=== PATIENT | male | born 1995 | race Caucasian/White ===

== ENCOUNTER 2017-12-23 17:10 | Emergency (ER) | payer SELFPAY ==
[~2017-12-23] VITALS: Ht 182.9 cm; Wt 95.3 kg
[~2017-12-23 17:10] MED LIST: CLIN300C3 PO; METH4TAB PO; NAPR-243 PO; PRCD5U PO; SULF1TAB35 PO; SULF1TAB38 PO
--- OUTSIDE RECORDS SUMMARY | 2017-12-23 17:15 | XMS REPORT | Continuity of Care Document ---
Author Author [facility] Organization [facility] Address Unknown Phone Unavailable Allergies Active Description Code Type Severity Reaction Onset Reported/Identified Relationship to Patient Clinical Status Yes No Known Drug Allergies [id number] Drug Allergy Mild N/A 12/12/2008 Medications There is no data. Problems Date Dx Coded Attending Type Code Diagnosis Diagnosed By 07/16/2011 Ot 845.00 SPRAIN OF ANKLE NOS 07/16/2011 Ot 959.7 LOWER LEG INJURY NOS 07/16/2011 Ot E000.8 OTHER EXTERNAL CAUSE STATUS 07/16/2011 Ot E849.0 ACCIDENT IN HOME 07/16/2011 Ot E885.9 FALL FROM SLIPPING, TRIPPING, OR STUMBLI 07/16/2011 Ot E927.0 OVEREXERTION FROM SUDDEN STRENUOUS MOVEM 03/15/2012 Ot 682.3 CELLULITIS OF ARM 03/24/2013 KAJAL HOLDER APRN Ot 845.00 SPRAIN OF ANKLE NOS 03/24/2013 KAJAL HOLDER APRN Ot 959.7 LOWER LEG INJURY NOS 03/24/2013 KAJAL HOLDER APRN Ot E000.8 OTHER EXTERNAL CAUSE STATUS 03/24/2013 KAJAL HOLDER APRN Ot E004.9 OTHER ACTIVITY INVG CLIMBING, RAPPELLING 03/24/2013 KAJAL HOLDER APRN Ot E849.0 ACCIDENT IN HOME 03/24/2013 KAJAL HOLDER APRN Ot E884.9 FALL-1 LEVEL TO OT NEC Procedures There is no data. Results There is no data. Encounters ACCT No. Visit Date/Time Discharge Status Pt. Type Provider Facility Loc./Unit Complaint [id number] 03/24/2013 19:15:00 03/24/2013 20:10:00 DIS Emergency KAJAL HOLDER APRN [facility] ER L ANKLE PAIN [id number] 03/15/2012 13:38:00 Document Registration [id number] 07/16/2011 19:27:00 Document Registration
--- OUTSIDE RECORDS SUMMARY | 2017-12-23 17:15 | XMS REPORT ---
Author Author MARILYN STARKEY Organization [facility] Address [address] [place] [address] Care Team Providers Care Exchange Administrator Name Role Phone MARILYN STARKEY Unavailable PROBLEMS Unknown Problems ALLERGIES No Information ENCOUNTERS Encounter Location Date Diagnosis [facility] [id number] [address] Sep, [facility] [id number] [place] [phone] Dec, [facility] [id number] [address] Jan, [facility] [id number] [place] [phone] Jan, [facility] [id number] [address] Dec, [facility] [id number] [place] [phone] May, [facility] [id number] [address] Feb, IMMUNIZATIONS No Known Immunizations SOCIAL HISTORY Never Assessed REASON FOR VISIT Requests return call PLAN OF CARE VITAL SIGNS MEDICATIONS Unknown Medications RESULTS No Results PROCEDURES No Known procedures INSTRUCTIONS MEDICATIONS ADMINISTERED No Known Medications
--- NOTE | 2017-12-23 17:24 | ED Upper Extremity ---
General Chief Complaint: Upper Extremity Stated Complaint: R HAND INJ Source: patient Exam Limitations: no limitations History of Present Illness Date Seen by Provider: Dec 23, 2017 Time Seen by Provider: 17:20 Initial Comments Patient is a 22-year-old male who presents to the emergency room with complaints of right hand pain. He reports that 5 days ago he smashed his hand between the ground and an entertainment center while moving into his new apartment. He reports that the pain has not improved and he started developing bruising on his right palmar surface of his hand. Onset: last week Pain/Injury Location: right hand Method of Injury: other (smashed) Modifying Factors: Improves With Immobilization; Worse With Movement Allergies and Home Medications Allergies Coded Allergies: No Known Drug Allergies (Unverified Allergy, Mild, 12/12/08) Home Medications No Active Prescriptions or Reported Meds Patient Home Medication List Home Medication List Reviewed: Yes Review of Systems Constitutional: see HPI; No chills, No fever Musculoskeletal: see HPI, joint pain (right hand pain and ecchymosis) All Other Systems Reviewed Negative Unless Noted: Yes Past Ecgsodz-Cxszux-Dwslbi Hx Past Med/Social Hx: Reviewed Nursing Past Med/Soc Hx Patient Social History Recent Foreign Travel: No Contact w/Someone Who Travel: No Family Medical History Reviewed Nursing Family Hx Physical Exam Vital Signs Vital Signs - First Documented 12/23/17 17:15 Temp 97.0 Pulse 62 Resp 18 B/P (MAP) 153/92 (112) Pulse Ox 99 Capillary Refill : Height, Weight, BMI Height: '" Weight: 201lbs. oz. 91.902179ti; BMI Method:Stated General Appearance: WD/WN, no apparent distress Cardiovascular: regular rate, rhythm, no edema, no gallop, no JVD, no murmur Respiratory: chest non-tender, lungs clear, normal breath sounds, no respiratory distress, no accessory muscle use Hand: normal ROM, Right, ecchymosis (and ecchymosis to the palmar surface at the base of the fourth and fifth fingers. No abrasions noted.), soft tissue tenderness, stiffness, swelling Neurologic/Tendon: normal sensation, normal motor functions, other (normal capillary refill) Neurologic/Psychiatric: alert, normal mood/affect, oriented x 3 Skin: normal color, warm/dry Procedures/Interventions Splinting and Joint Reduction : Pre-Proc Neuro Vasc Exam: normal Post-Proc Neuro Vasc Exam: normal, unchanged from pre-exam Hand-Made Type: fiberglass Splint Application: Short Arm (ulnar gutter) Progress/Results/Core Measures Results/Orders My Orders Orders - CAROLA FOX Hand, Right, 3 Views (12/23/17 17:19) Vital Signs/I&O 12/23/17 12/23/17 17:15 18:30 Temp 97.0 97.0 Pulse 62 62 Resp 18 18 B/P (MAP) 153/92 (112) 153/92 (112) Pulse Ox 99 99 Progress Progress Note : Time: 18:20 Progress Note I have seen and evaluated the patient. I have informed him of imaging studies. I have placed the patient in an ulnar gutter splint. I have instructed close follow-up with an orthopedic surgeon of his choosing. He agrees with plan of care, plans for discharge, return precautions were given. Departure Impression Primary Impression: Boxer's metacarpal fracture, neck, closed Qualified Codes: S62.339A - Displaced fracture of neck of unspecified metacarpal bone, initial encounter for closed fracture Disposition: HOME, SELF-CARE Condition: Stable/Unchanged Departure-Patient Inst. Decision time for Depature: 18:20 Referrals: [facility] [place] (PCP/Family) Primary Care Physician TATIANA SNOWDEN MD,RYLEY Shrestha MD Patient Instructions: Boxer's Fracture (DC) Add. Discharge Instructions: Wear the splint at all times. Take medications as directed. Follow-up with an orthopedic surgeon of your choosing within 1 week for further evaluation. Call first thing tomorrow morning for appointment time. I have provided the number for Dr. Mckeon and [facility]. He may use ice and elevation as needed. Follow up with [facility] within 1 week for recheck. All discharge instructions reviewed with patient and/or family. Voiced understanding. Scripts No Active Prescriptions or Reported Meds CAROLA FOX Dec 23, 2017 17:24
--- NOTE | 2017-12-23 17:37 | Diagnostic Imaging Report ---
INDICATION: Injury to the right hand with pain in the fifth digit and metacarpal region. TIME OF EXAM: 5:48 p.m. FINDINGS: Three views of the right hand were obtained. There is an acute fracture of the distal fifth metacarpal. There is volar angulation of the distal fracture fragment. Remaining metacarpals are intact. Phalanges are intact. Carpus is unremarkable. IMPRESSION: Angulated distal fifth metacarpal fracture, as described. Dictated by: Dictated on workstation # [id number]
[2017-12-23] MEDS ORDERED: ACHD5005 PO (18:22)
[2017-12-23 18:30] VITALS: BP 153/92
== END 2017-12-23 18:30 | disposition home or self-care (01) ==
LOC: EDUNIT# 17:10 → ER 17:11
DX: S62.336A Displaced fracture of neck of fifth metacarpal bone, right hand, initial encounter for closed fracture (principal); W22.09XA Striking against other stationary object, initial encounter
CPT/HCPCS: 29125; 73130

== ENCOUNTER 2020-01-01 22:28 | Observation (INO) | payer SELFPAY ==
[~2020-01-01] VITALS: Ht 183 cm; Wt 116.9 kg
[~2020-01-01 22:28] MED LIST changes: +ACHD5005 PO
[2020-01-01 22:52] VITALS: BP 115/76
[2020-01-01] MEDS ORDERED: LACTATED RINGERS 1,000 ML IV ONE (22:53)
[2020-01-01] MEDS ORDERED: PROPOFOL DRIP (ICU) 100 ML IV SCH (23:00)
[2020-01-01 23:01] LABS: BASOPHILS % (AUTO) 0 % (0-10); EOSINOPHILS # (AUTO) 0.2 10^3/uL (0.0-0.3); EOSINOPHILS % (AUTO) 2 % (0-10); HEMATOCRIT 42 % (40-54); HEMOGLOBIN 14.1 G/DL (13.3-17.7); LYMPHOCYTES # (AUTO) 4.5 X 10^3 (1.0-4.0); LYMPHOCYTES % (AUTO) 40 % (12-44); MEAN CORPUSCULAR HEMOGLOBIN 29 PG (25-34); MEAN CORPUSCULAR HGB CONC 34 G/DL (32-36); MEAN CORPUSCULAR VOLUME 85 FL (80-99); MONOCYTES # (AUTO) 0.8 X 10^3 (0.0-1.0); MONOCYTES % (AUTO) 7 % (0-12); NEUTROPHILS # (AUTO) 5.7 X 10^3 (1.8-7.8); NEUTROPHILS % (AUTO) 51 % (42-75); PLATELET COUNT 254 10^3/uL (130-400); WHITE BLOOD COUNT 11.2 10^3/uL (4.3-11.0)
--- NOTE | 2020-01-01 23:02 | ED Psychosocial ---
General Chief Complaint: Substance Abuse Stated Complaint: ETHOH ABUSE Nursing Triage Note: brought in by [facility] minimal responsiveness. reported pt had drank 2 5th's whiskey et. beer today. altered mental status. reported to be combative at scene. Source: patient Exam Limitations: no limitations History of Present Illness Date Seen by Provider: Jan 01, 2020 Time Seen by Provider: 22:15 Initial Comments Patient presents ER by EMS from home with chief complaint that he drank 2 pints of [place] Deluxe and has been drinking alicja latte all night. He was agitated, delirious and not speaking per EMS. He had been banging his head against the wall. Vomiting and not protecting his airway. EMS established an IV and was making an attempt at establishing a more definitive airway when the patient began thrashing about ripped his IV out. Allergies and Home Medications Allergies Coded Allergies: No Known Drug Allergies (Unverified , 12/12/08) Home Medications No Active Prescriptions or Reported Meds Patient Home Medication List Home Medication List Reviewed: Yes Review of Systems Constitutional: see HPI (patient unable to give any meaningful review of systems) Past Opizjwh-Trnlhd-Jffljr Hx Patient Social History Alcohol Use: Occasionally Uses Alcohol Beverage of Choice: Beer, Whiskey Recreational Drug Use: No Smoking Status: Unknown if Ever Smoked Recent Foreign Travel: No Contact w/Someone Who Travel: No Recent Infectious Disease Expo: No Recent Hopitalizations: No Immunizations Up To Date Tetanus Booster (TDap): Unknown Seasonal Allergies Seasonal Allergies: No Past Medical History Surgeries: No (unk) Respiratory: No Cardiac: No Neurological: No Genitourinary: No Gastrointestinal: No Musculoskeletal: No Endocrine: No HEENT: No Cancer: No Psychosocial: No Blood Disorders: No Physical Exam Vital Signs - First Documented 01/01/20 01/01/20 22:28 22:52 Temp 36.5 Pulse 79 Resp 12 B/P (MAP) 121/75 (90) Pulse Ox 98 O2 Delivery Ambu Bag FiO2 40 Capillary Refill : Less Than 3 Seconds Height, Weight, BMI Height: 6'0" Weight: 210lbs. oz. 95.331890as; 32.00 BMI Method:Stated General Appearance: severe distress, other (acutely agitated and disheveled) HEENT: PERRL/EOMI, TMs normal, pharynx normal Neck: full range of motion, normal inspection Respiratory: lungs clear, normal breath sounds, no respiratory distress, no accessory muscle use, other (retching but not protecting airway) Cardiovascular: normal peripheral pulses, regular rate, rhythm Peripheral Pulses: 2+ Radial Pulses (R), 2+ Radial Pulses (L) Gastrointestinal: non tender, soft, no organomegaly Extremities: normal range of motion, normal capillary refill Neurologic/Psychiatric: other (GCS 7) Procedures/Interventions Reason for Intubation: not protecting airway, GCS 7 Date of ETT Placement: Jan 02, 2020 Time of ETT Placement: 22:40 Intubation Method: orotracheal Tube Size: 8.0 Medications: Etomidate (20), Rocuronium (50) Positive End Tide CO2: Yes Breath Sounds after Intubation: bilateral-equal Intubation Complications: no complications Post Intubation Xray: Yes good position 3 cm above suzanne Patient was sedated with 20 mg of etomidate and 50 mg rocuronium. Using the Braden vision laryngoscope and an 8.0 ET tube we were able to place it and visualize a going across the vocal cords. 26 at the maxillary anterior teeth. Symmetric bilateral breath sounds. Oxygen sats were 99% when we started and 96% of the time he was intubated. Colorimetric capnography paper changed color on exhalation. Chest x-ray was ordered after securing the tube in place. Progress/Results/Core Measures Results/Orders Lab Results Laboratory Tests Test 01/01/20 22:35 01/01/20 23:00 01/02/20 00:50 01/02/20 02:21 Range/Units White Blood Count 11.2 H 4.3-11.0 10^3/uL Red Blood Count 4.90 4.35-5.85 10^6/uL Hemoglobin 14.1 13.3-17.7 G/DL Hematocrit 42 40-54 % Mean Corpuscular Volume 85 80-99 FL Mean Corpuscular Hemoglobin 29 25-34 PG Mean Corpuscular Hemoglobin Concent 34 32-36 G/DL Red Cell Distribution Width 13.2 10.0-14.5 % Platelet Count 254 130-400 10^3/uL Mean Platelet Volume 11.0 H 7.4-10.4 FL Neutrophils (%) (Auto) 51 42-75 % Lymphocytes (%) (Auto) 40 12-44 % Monocytes (%) (Auto) 7 0-12 % Eosinophils (%) (Auto) 2 0-10 % Basophils (%) (Auto) 0 0-10 % Neutrophils # (Auto) 5.7 1.8-7.8 X 10^3 Lymphocytes # (Auto) 4.5 H 1.0-4.0 X 10^3 Monocytes # (Auto) 0.8 0.0-1.0 X 10^3 Eosinophils # (Auto) 0.2 0.0-0.3 10^3/uL Basophils # (Auto) 0.0 0.0-0.1 10^3/uL Sodium Level 140 135-145 MMOL/L Potassium Level 3.5 L 3.6-5.0 MMOL/L Chloride Level 104 98-107 MMOL/L Carbon Dioxide Level 24 21-32 MMOL/L Anion Gap 12 5-14 MMOL/L Blood Urea Nitrogen 8 7-18 MG/DL Creatinine 1.19 0.60-1.30 MG/DL Estimat Glomerular Filtration Rate > 60 BUN/Creatinine Ratio 7 Glucose Level 105 70-105 MG/DL Calcium Level 8.6 8.5-10.1 MG/DL Corrected Calcium 8.4 L 8.5-10.1 MG/DL Magnesium Level 2.1 1.6-2.4 MG/DL Total Bilirubin 0.3 0.1-1.0 MG/DL Aspartate Amino Transf (AST/SGOT) 42 H 5-34 U/L Alanine Aminotransferase (ALT/SGPT) 70 H 0-55 U/L Alkaline Phosphatase 50 40-136 U/L Total Creatine Kinase 220 H 30-200 U/L Total Protein 7.3 6.4-8.2 GM/DL Albumin 4.3 3.2-4.5 GM/DL Triglycerides Level 243 H <150 MG/DL Salicylates Level < 5.0 L 5.0-20.0 MG/DL Acetaminophen Level < 10 L 10-30 UG/ML Serum Alcohol 300 H <10 MG/DL Urine Color YELLOW Urine Clarity CLEAR Urine pH 6.0 5-9 Urine Specific [place] <=1.005 1.016-1.022 Urine Protein NEGATIVE NEGATIVE Urine Glucose (UA) NEGATIVE NEGATIVE Urine Ketones NEGATIVE NEGATIVE Urine Nitrite NEGATIVE NEGATIVE Urine Bilirubin NEGATIVE NEGATIVE Urine Urobilinogen 0.2 < = 1.0 MG/DL Urine Leukocyte Esterase NEGATIVE NEGATIVE Urine RBC (Auto) TRACE-I NEGATIVE Urine RBC NONE /HPF Urine WBC 0-2 /HPF Urine Squamous Epithelial Cells RARE /HPF Urine Crystals NONE /LPF Urine Bacteria TRACE /HPF Urine Casts NONE /LPF Urine Mucus NEGATIVE /LPF Urine Culture Indicated NO Urine Opiates Screen NEGATIVE NEGATIVE Urine Oxycodone Screen NEGATIVE NEGATIVE Urine Methadone Screen NEGATIVE NEGATIVE Urine Propoxyphene Screen NEGATIVE NEGATIVE Urine Barbiturates Screen NEGATIVE NEGATIVE Ur Tricyclic Antidepressants Screen NEGATIVE NEGATIVE Urine Phencyclidine Screen NEGATIVE NEGATIVE Urine Amphetamines Screen NEGATIVE NEGATIVE Urine Methamphetamines Screen NEGATIVE NEGATIVE Urine Benzodiazepines Screen NEGATIVE NEGATIVE Urine Cocaine Screen NEGATIVE NEGATIVE Urine Cannabinoids Screen NEGATIVE NEGATIVE Lactic Acid Level 1.63 0.50-2.00 MMOL/L Blood Gas Puncture Site LEFT RADIAL Blood Gas Patient Temperature 37.0 Arterial Blood pH 7.35 L 7.37-7.43 Arterial Blood Partial Pressure CO2 44 35-45 MMHG Arterial Blood Partial Pressure O2 101 H 79-93 MMHG Arterial Blood HCO3 23 23-27 MMOL/L Arterial Blood Total CO2 24.0 21.0-31.0 MMOL/L Arterial Blood Oxygen Saturation 97 94-100 % Arterial Blood Base Excess -2.5 -2.5-2.5 MMOL/L Ganesh Test YES-POS Blood Gas Ventilator Setting YES Blood Gas Inspired Oxygen 40% Test 01/02/20 02:22 Range/Units White Blood Count 7.4 4.3-11.0 10^3/uL Red Blood Count 4.84 4.35-5.85 10^6/uL Hemoglobin 14.0 13.3-17.7 G/DL Hematocrit 41 40-54 % Mean Corpuscular Volume 85 80-99 FL Mean Corpuscular Hemoglobin 29 25-34 PG Mean Corpuscular Hemoglobin Concent 34 32-36 G/DL Red Cell Distribution Width 13.2 10.0-14.5 % Platelet Count 263 130-400 10^3/uL Mean Platelet Volume 11.4 H 7.4-10.4 FL Neutrophils (%) (Auto) 61 42-75 % Lymphocytes (%) (Auto) 32 12-44 % Monocytes (%) (Auto) 6 0-12 % Eosinophils (%) (Auto) 1 0-10 % Basophils (%) (Auto) 0 0-10 % Neutrophils # (Auto) 4.5 1.8-7.8 X 10^3 Lymphocytes # (Auto) 2.4 1.0-4.0 X 10^3 Monocytes # (Auto) 0.4 0.0-1.0 X 10^3 Eosinophils # (Auto) 0.1 0.0-0.3 10^3/uL Basophils # (Auto) 0.0 0.0-0.1 10^3/uL Sodium Level 141 135-145 MMOL/L Potassium Level 4.1 3.6-5.0 MMOL/L Chloride Level 107 98-107 MMOL/L Carbon Dioxide Level 22 21-32 MMOL/L Anion Gap 12 5-14 MMOL/L Blood Urea Nitrogen 8 7-18 MG/DL Creatinine 1.13 0.60-1.30 MG/DL Estimat Glomerular Filtration Rate > 60 BUN/Creatinine Ratio 7 Glucose Level 100 70-105 MG/DL Calcium Level 8.5 8.5-10.1 MG/DL Corrected Calcium 8.4 L 8.5-10.1 MG/DL Phosphorus Level 2.7 2.3-4.7 MG/DL Magnesium Level 2.2 1.6-2.4 MG/DL Total Bilirubin 0.4 0.1-1.0 MG/DL Aspartate Amino Transf (AST/SGOT) 59 H 5-34 U/L Alanine Aminotransferase (ALT/SGPT) 81 H 0-55 U/L Alkaline Phosphatase 50 40-136 U/L Total Protein 7.3 6.4-8.2 GM/DL Albumin 4.1 3.2-4.5 GM/DL My Orders Orders - WENDY,FLACO J Chest 1 View, Ap/Pa Only (01/01/20 22:44) Propofol Drip (Icu) (Diprivan Drip (Icu) (01/01/20 23:00) Ua Culture If Indicated (01/01/20 22:53) Cbc With Automated Diff (01/01/20 22:53) Comprehensive Metabolic Panel (01/01/20 22:53) Alcohol (01/01/20 22:53) Drug Screen Stat (Urine) (01/01/20 22:53) Acetaminophen (01/01/20 22:53) Salicylate (01/01/20 22:53) Ekg Tracing (01/01/20 22:53) Ed Iv/Invasive Line Start (01/01/20 22:53) Monitor-Rhythm Ecg Trace Only (01/01/20 22:53) Ed Iv/Invasive Line Start (01/01/20 22:53) Lactated Ringers (Lr 1000 Ml Iv Solution (01/01/20 22:53) Catheter(Urinary) Insert & Ass 03,15 (01/01/20 22:55) Ct Head/Cervical Spine Wo (01/01/20 23:02) Triglycerides (01/03/20 05:00) Triglycerides (01/05/20 05:00) Triglycerides (01/07/20 05:00) Magnesium (01/01/20 23:18) Medications Given in ED Current Medications Medications Dose Ordered Sig/Mary Route Start Time Stop Time Status Last Admin Dose Admin Lactated Ringer's 1,000 ml @ 0 mls/hr Q0M ONCE IV 01/01/20 22:53 01/01/20 22:56 DC 01/01/20 23:12 0 MLS/HR Vital Signs/I&O 01/01/20 01/01/20 01/01/20 01/02/20 22:28 22:52 23:12 00:34 Temp 36.5 36.5 Pulse 79 75 79 72 Resp 12 16 16 B/P (MAP) 121/75 (90) 121/75 101/51 (90) Pulse Ox 98 95 95 O2 Delivery Ambu Bag Room Air FiO2 40 01/02/20 01/02/20 01/02/20 01/02/20 01:02 01:02 01:02 01:15 Temp 37.0 Pulse 86 70 79 Resp 13 16 12 B/P (MAP) 106/52 (70) 126/89 (101) Pulse Ox 100 95 100 O2 Delivery Mechanical Ventilator Mechanical Ventilator Mechanical Ventilator FiO2 40 40 01/02/20 01/02/20 01/02/20 01/02/20 01:18 01:30 01:45 02:00 Pulse 71 73 73 72 Resp 14 12 16 B/P (MAP) 104/60 (75) 99/59 (72) 95/57 (70) Pulse Ox 95 96 95 O2 Delivery Mechanical Ventilator Mechanical Ventilator Mechanical Ventilator 01/02/20 01/02/20 01/02/20 01/02/20 02:30 03:00 03:55 04:12 Pulse 71 71 71 77 Resp 12 16 B/P (MAP) 94/55 (68) 95/55 (68) 95/55 115/70 Pulse Ox 96 96 O2 Delivery Mechanical Ventilator Mechanical Ventilator Blood Pressure Mean: 90 Progress Progress Note : Time: 00:04 Progress Note The patient was moving all 4 extremities on initial exam but not protecting his airway so we made the decision to intubate. Orogastric tube was placed and secured and put to suction removing some stomach contents. Propofol was chosen sedation as necessary. Communicated with his mother via telephone. We will have nursing update her before he goes to the ICU. CT of the head and C-spine since there was a story that he was banging his head against wall. Initial ECG Impression Date: Jan 02, 2020 Initial ECG Impression Time: 23:06 Initial ECG Rate: 87 Initial ECG Rhythm: Normal Sinus Initial ECG Intervals: Normal Initial ECG Impression: Normal Initial ECG Comparisson: No Previous ECG Available Comment Normal sinus rhythm without clinically relevant ST elevation or depression. Diagnostic Imaging Diagonstic Imaging: Xray Plain Films/CT/US/NM/MRI: chest Comments No acute cardiopulmonary process noted. ET tube in acceptable location over the shadow of the trachea about 3 cm above the suzanne. Orogastric tube in acceptable position. No free air under the diaphragm. Reviewed: Reviewed by Me Diagonstic Imaging: CT Plain Films/CT/US/NM/MRI: c-spine, head Comments No intracranial hemorrhage, mass effect, midline shift or tumor. No calvarial fracture. No C-spine malalignment or fracture. ET tube and OG visualized. OG is looped in the retropharynx/esophagus Reviewed: Reviewed by Me Departure Communication (Admissions) Time/Spoke to Admitting Phy: 00:14 Discussed the case with Dr. Yen she agrees to observe the patient in the ICU with consult to E- ICU; intubated for alcohol Intoxication and delirium. Impression Primary Impression: Acute alcoholic intoxication Qualified Codes: F10.921 - Alcohol use, unspecified with intoxication delirium Additional Impression: Endotracheally intubated Disposition: ADMITTED INPATIENT Condition: Stable Admissions Decision to Admit Reason: Admit from ER (General) Decision to Admit/Date: Jan 01, 2020 Time/Decision to Admit Time: 23:30 Departure-Patient Inst. Referrals: [facility] (PCP/Family) Primary Care Physician Patient Instructions: ALCOHOL AND SUBSTANCE ABUSE Scripts No Active Prescriptions or Reported Meds FLACO NGUYEN Jan 01, 2020 23:02
[2020-01-01 23:09] LABS: BILIRUBIN,URINE NEGATIVE (NEGATIVE); CLARITY,URINE CLEAR; COLOR,URINE YELLOW; GLUCOSE, URINE (UA) NEGATIVE (NEGATIVE); KETONES,URINE NEGATIVE (NEGATIVE); LEUKOCYTE ESTERASE ,URINE NEGATIVE (NEGATIVE); NITRITE,URINE NEGATIVE (NEGATIVE); PROTEIN,URINE NEGATIVE (NEGATIVE)
[2020-01-01 23:11] LABS: ALBUMIN 4.3 GM/DL (3.2-4.5); CHLORIDE 104 MMOL/L (98-107); POTASSIUM 3.5 MMOL/L (3.6-5.0); SODIUM 140 MMOL/L (135-145)
[2020-01-01 23:12] LABS: CALCIUM 8.6 MG/DL (8.5-10.1)
[2020-01-01 23:14] LABS: GLUCOSE 105 MG/DL (70-105); TOTAL PROTEIN 7.3 GM/DL (6.4-8.2)
--- NOTE | 2020-01-01 23:14 | NUR ---
DR. NGUYEN UPDATED PT MOTHER ON CURRENT CONDITION AND PENDING ADMISSION TO ICU.
[2020-01-01 23:15] LABS: BILIRUBIN,TOTAL 0.3 MG/DL (0.1-1.0); CARBON DIOXIDE 24 MMOL/L (21-32)
[2020-01-01 23:17] LABS: BACTERIA,URINE TRACE /HPF; SQUAMOUS EPITHELIAL CELL,UR RARE /HPF; WBC,URINE 0-2 /HPF
[2020-01-01 23:17] LABS: ALKALINE PHOSPHATASE 50 U/L (40-136); CREATININE SERUM 1.19 MG/DL (0.60-1.30); GFR ESTIMATED > 60
[2020-01-01 23:19] LABS: BUN/CREATININE RATIO 7
[2020-01-01 23:20] LABS: SALICYLATE < 5.0 MG/DL (5.0-20.0)
[2020-01-01 23:20] LABS: AMPHETAMINE SCREEN, URINE NEGATIVE (NEGATIVE); BARBITURATE SCREEN URINE NEGATIVE (NEGATIVE); BENZODIAZEPINES SCREEN URINE NEGATIVE (NEGATIVE); CANNABINOID SCREEN, URINE NEGATIVE (NEGATIVE); COCAINE SCREEN URINE NEGATIVE (NEGATIVE); METHADONE STAT NEGATIVE (NEGATIVE); METHAMPHETAMINE SCREEN URINE S NEGATIVE (NEGATIVE); OPIATE SCREEN URINE NEGATIVE (NEGATIVE); OXYCODONE STAT NEGATIVE (NEGATIVE); PROPOXYPHENE STAT NEGATIVE (NEGATIVE); TRICYCLIC ANTIDEPRESSANTS SCRE NEGATIVE (NEGATIVE)
[2020-01-01 23:21] LABS: ALANINE AMINOTRANSFERASE 70 U/L (0-55)
[2020-01-01 23:22] LABS: ACETAMINOPHEN < 10 UG/ML (10-30)
[2020-01-02] VITALS (15 sets, daily range): BP systolic 81–155; BP diastolic 45–89
[2020-01-02] MEDS ORDERED: ROCURONIUM 10 MG/ML 5 ML SYRINGE IV ONE (00:21)
[2020-01-02] MEDS ORDERED: ETOMIDATE IV SOLN 20 MG/10 ML VIAL IV ONE (00:21)
--- NOTE | 2020-01-02 00:25 | NUR ---
PASSWORD SET UP WITH PT MOTHER: "MARK".
[2020-01-02] MEDS ORDERED: ENOXAPARIN 40 MG/0.4 ML (LOVENOX) SYR SC SCH (00:45)
[2020-01-02 00:53] LABS: TRIGLYCERIDES 243 MG/DL (<150)
[2020-01-02 00:58] LABS: CREATINE KINASE 220 U/L (30-200)
--- NOTE | 2020-01-02 01:02 | NUR ---
Report received from Keny QUICK, update received from Melida QUICK. Patient arrived to room ICU 10 at 0102 via stretcher. This nurse completed as much of admission as possible d/t patient being intubated and sedated, patients family has not called to speak with this nurse so I am unaware of a way to contact family to possibly assist with admission questions.
[2020-01-02] MEDS ORDERED: LACTATED RINGERS 1,000 ML IV ONE (01:13)
[2020-01-02] MEDS ORDERED: ONDANSETRON 4 MG/2 ML (SDV) Z0FRAN IV PRN (01:45)
[2020-01-02] MEDS ORDERED: ACETAMINOPHEN 650 MG SUPP (TYLENOL) PR PRN (01:45)
[2020-01-02] MEDS ORDERED: LACTATED RINGERS 1,000 ML IV SCH (01:45)
[2020-01-02] MEDS ORDERED: LORazepam INJ 2 MG/ML (ATIVAN) VIAL IVP PRN (01:45)
[2020-01-02 02:26] LABS: ABG BASE EXCESS -2.5 MMOL/L (-2.5-2.5); ABG OXYGEN SATURATION 97 % (94-100); ABG PCO2 44 MMHG (35-45); ABG PO2 101 MMHG (79-93)
[2020-01-02 02:28] LABS: ABG PH 7.35 (7.37-7.43); ALLENS TEST YES-POS; INSPIRED O2 40%; VENTILATOR YES
[2020-01-02 03:19] LABS: BASOPHILS % (AUTO) 0 % (0-10); EOSINOPHILS # (AUTO) 0.1 10^3/uL (0.0-0.3); EOSINOPHILS % (AUTO) 1 % (0-10); HEMATOCRIT 41 % (40-54); LYMPHOCYTES # (AUTO) 2.4 X 10^3 (1.0-4.0); LYMPHOCYTES % (AUTO) 32 % (12-44); MEAN CORPUSCULAR HEMOGLOBIN 29 PG (25-34); MEAN CORPUSCULAR HGB CONC 34 G/DL (32-36); MEAN CORPUSCULAR VOLUME 85 FL (80-99); MEAN PLATELET VOLUME 11.4 FL (7.4-10.4); MONOCYTES # (AUTO) 0.4 X 10^3 (0.0-1.0); MONOCYTES % (AUTO) 6 % (0-12); NEUTROPHILS # (AUTO) 4.5 X 10^3 (1.8-7.8); NEUTROPHILS % (AUTO) 61 % (42-75); PLATELET COUNT 263 10^3/uL (130-400); WHITE BLOOD COUNT 7.4 10^3/uL (4.3-11.0)
--- NOTE | 2020-01-02 03:28 | NUR ---
Patients mother Domenica called to speak with this nurse, this nurse updated Domenica on patient. Domenica provided patients password prior to this nurse speaking with her about patient. Phone number placed under emergency contacts.
[2020-01-02 03:32] LABS: ALBUMIN 4.1 GM/DL (3.2-4.5); CHLORIDE 107 MMOL/L (98-107); POTASSIUM 4.1 MMOL/L (3.6-5.0); SODIUM 141 MMOL/L (135-145)
[2020-01-02 03:33] LABS: CALCIUM 8.5 MG/DL (8.5-10.1)
[2020-01-02 03:35] LABS: GLUCOSE 100 MG/DL (70-105); TOTAL PROTEIN 7.3 GM/DL (6.4-8.2)
[2020-01-02 03:36] LABS: BILIRUBIN,TOTAL 0.4 MG/DL (0.1-1.0); CARBON DIOXIDE 22 MMOL/L (21-32)
[2020-01-02 03:38] LABS: ALKALINE PHOSPHATASE 50 U/L (40-136); CREATININE SERUM 1.13 MG/DL (0.60-1.30); GFR ESTIMATED > 60; PHOSPHORUS 2.7 MG/DL (2.3-4.7)
[2020-01-02 03:40] LABS: BUN/CREATININE RATIO 7
[2020-01-02 03:41] LABS: ALANINE AMINOTRANSFERASE 81 U/L (0-55); MAGNESIUM 2.2 MG/DL (1.6-2.4)
[2020-01-02] MEDS: PROPOFOL DRIP (ICU) 100 ML IV SCH ×3 (03:55→06:46)
[2020-01-02] MEDS: POTASSIUM CL 10MEQ/50ML IVPB 50 ML IV SCH ×4 (04:08→06:46)
[2020-01-02] MEDS ORDERED: POTASSIUM CL 10MEQ/50ML IVPB 50 ML IV SCH (06:00)
[2020-01-02] MEDS ORDERED: MAGNESIUM 1 GM/100 ML IVPB 100 ML IV SCH (06:00)
[2020-01-02] MEDS ORDERED: KCL 20 MEQ TAB (K-DUR) PO SCH (06:00)
--- NOTE | 2020-01-02 07:09 | Diagnostic Imaging Report ---
INDICATION: Intubation Frontal chest obtained at 10:50 a.m. There is no prior study for comparison. ET tube tip overlies upper trachea just below the thoracic inlet. NG tube tip overlies mid stomach. Heart is mildly prominent, this may be due to portable technique. There is some mild right basilar infiltrate versus atelectasis. There is fullness in the superior mediastinum which also may be technical, followup is recommended. There is no pneumothorax or pleural fluid. IMPRESSION: ET tube and NG tube as described above. Fullness in superior mediastinum, this may be technical, followup is recommended. There is some mild right basilar infiltrate versus atelectasis. There is relatively poor inspiration. Dictated by: Dictated on workstation # [id number]
--- NOTE | 2020-01-02 07:44 | Diagnostic Imaging Report ---
PROCEDURE: CT head and CT cervical spine without contrast. TECHNIQUE: Multiple contiguous axial images were obtained through the brain and cervical spine without the use of intravenous contrast. Sagittal and coronal reformations through the cervical spine were then performed. Auto Exposure Controls were utilized during the CT exam to meet ALARA standards for radiation dose reduction. INDICATION: Unresponsive. Head: There is no hemorrhage, hydrocephalus, edema, mass, mass effect or evidence for an elevation of the intracranial pressures. No sulcal effacement. No paranasal sinus air-fluid level. There is paranasal sinus membrane thickening in the ethmoids and maxillaries on a chronic basis. Cervical spine: Body heights maintained, alignment anatomic, no paravertebral hematoma, no cervical spinal fracture deformity. IMPRESSION: CT head: No hemorrhage or acute abnormality. Paranasal sinus membrane disease noted. Cervical spine: No fracture or traumatic malalignment. Dictated by: Dictated on workstation # [id number]
[2020-01-02] MEDS ORDERED: PANTOPRAZOLE 40 MG (PROTONIX) VIAL IV SCH (09:00)
[2020-01-02] MEDS ORDERED: THIAMINE INJECTION 100 MG, FOLIC ACID INJECTION 1 MG, VITAMIN MULTI INJECTION 10 ML, MA... IV SCH ×5 (09:00)
[2020-01-02 09:02] LABS: ACETAMINOPHEN < 10 UG/ML (10-30)
--- NOTE | 2020-01-02 09:20 | NUR ---
DR. FERNANDO AT BEDSIDE AT 0900, REVIEWED PATIENTS LABS, ET INSTRUCTED THIS RN TO STOP PROPOFOL. PROPOFOL STOPPED ET DISCONNECTED FROM PATIENT. PATIENT BEGAN FOLLOWING SIMPLE COMMANDS, SHAKING HEAD YES ET NO TO QUESTIONS. PATIENT EXTUBATED BY RT AT 0910, WITH THIS NURSE, DR. FERNANDO ET ICU TL AT BEDSIDE, RESTRAINTS REMOVED AT THAT TIME WELL. PATIENT PLACED ON 3L/NC. FOLLOWING COMMANDS APPROPRIATELY.
--- NOTE | 2020-01-02 09:22 | Diagnostic Imaging Report ---
INDICATION: Intubation, mechanical ventilation. TECHNIQUE: Single view chest 8:52 AM. CORRELATION STUDY: 01/01/2020 FINDINGS: Endotracheal tube tip remains over the trachea below the thoracic inlet. Gastric tube passes below the left hemidiaphragm, tip in the body of stomach. Heart size enlarged, mediastinum prominent, but overall appears slightly less severe. Minimal perihilar and basilar areas of atelectasis. Overall improved aeration through the lung nevarez. IMPRESSION: 1. Stable appearance about support lines and tubes. 2. Prominent mediastinum again demonstrated but overall appears somewhat less pronounced. The perihilar and right upper lobe areas of infiltrate or atelectasis appear improved with minimal basilar atelectasis suggested. Dictated by: Dictated on workstation # [id number]
--- NOTE | 2020-01-02 10:24 | History & Physical-Hospitalist ---
History of Present Illness HPI/Chief Complaint this is a 24-year-old white male who had been drinking with a friend. He drank 2 pints of [place] deluxe and an unknown amount of beer. he became extremely intoxicated with vomitus self abuse and was unable to protect his airway. He was intubated in the emergency room and admitted overnight for support. This morning he was extremely agitated and difficult to controlled despite propofol. Propofol was held the patient was following commands and he was extubated. After extubation the patient was awake and alert able to breathe on his own and was much calmer. History is obtained from him. He is awake and alert and knows that he's in the hospital now and is pretty adamant he's never going to do this again- but wants to go home Source: patient Exam Limitations: no limitations Date Seen 01/02/20 Time Seen by a Provider: 09:00 Attending Physician Cathy Yen MD [facility] Referring Physician Date of Admission Jan 02, 2020 at 00:20 Home Medications & Allergies Home Medications Reviewed patient Home Medication Reconciliation performed by pharmacy medication reconciliations printer technician and/or nursing. Patients Allergies have been reviewed. Allergies Allergies Coded Allergies No Known Drug Allergies (Unverified12/12/08) Past Jqmvjxv-Ebizjp-Whloke Hx Past Med/Social Hx: Reviewed Nursing Past Med/Soc Hx Patient Social History Marrital Status: Employed/Student: employed Alcohol Use: Occasionally Uses Alcohol Beverage of Choice: Beer, Whiskey Recreational Drug Use: No Smoking Status: Unknown if Ever Smoked Recent Foreign Travel: No Contact w/other who traveled: No Recent Hopitalizations: No Recent Infectious Disease Expo: No Immunizations Up To Date Tetanus Booster (TDap): Unknown Seasonal Allergies Seasonal Allergies: No Past Medical History History of Blood Disorders: No Family History Reviewed Nursing Family Hx No Pertinent Family Hx Review of Systems Constitutional: no symptoms reported EENTM: no symptoms reported Respiratory: no symptoms reported Cardiovascular: no symptoms reported Gastrointestinal: no symptoms reported Genitourinary: no symptoms reported Musculoskeletal: no symptoms reported Skin: no symptoms reported Psychiatric/Neurological: No Symptoms Reported Physical Exam Physical Exam Vital Signs Vital Signs - First Documented 01/01/20 01/01/20 01/02/20 22:28 22:52 01:15 Temp 36.5 Pulse 79 Resp 12 B/P (MAP) 121/75 (90) Pulse Ox 98 O2 Delivery Ambu Bag O2 Flow Rate 40.00 FiO2 40 Capillary Refill : Less Than 3 Seconds Height, Weight, BMI Height: 6'0" Weight: 210lbs. oz. 95.063497lx; 32.00 BMI Method:Stated General Appearance: No Apparent Distress, WD/WN HEENT: Normal ENT Inspection Neck: Non Tender, Supple Respiratory: Chest Non Tender, Lungs Clear, Normal Breath Sounds, No Accessory Muscle Use, No Respiratory Distress Cardiovascular: Regular Rate, Rhythm, No Gallop, No Murmur, Normal Peripheral Pulses Gastrointestinal: Normal Bowel Sounds, Non Tender, Soft Back: Normal Inspection Extremity: Non Tender, No Calf Tenderness Neurologic/Psychiatric: Alert, Oriented x3, No Motor/Sensory Deficits, Normal Mood/Affect Skin: Normal Color, Warm/Dry, Other (multiple chigger bites and is sturdy with painted toenails) Results Results/Procedures Labs Laboratory Tests 01/01/20 22:35 01/02/20 02:22 Patient resulted labs reviewed. Assessment/Plan Admission Diagnosis acute alcohol intoxication with delirium and altered mental status Vomiting with inability to protect his own airway Patient was extubated and is still legally intoxicated although oriented and appropriate. The patient will be continued on IV fluids allowed to rest, advance diet as tolerated ,and discharge if stable Admission Status: Observation Clinical Quality Measures DVT/VTE Risk/Contraindication: RFS Level Per Nursing on Admit: 1=Low/No VTE PPX Copy Copies To 1: [facility]/CATHY ANTOINE MD Jan 02, 2020 10:24
--- NOTE | 2020-01-02 11:29 | NUR ---
patient left AMA at this time, paperwork signed. IV's D/C'd, tips intact. Family picked patient up, patient took personal belongings when he left.
== END 2020-01-02 11:30 | disposition left against medical advice (07) ==
LOC: EDUNIT# 22:31 → ER 22:34 → ICU 01-02 00:20
PROVIDERS: ADMIT Internal Medicine; ATTEND Internal Medicine
DX: F10.921 Alcohol use, unspecified with intoxication delirium (principal)
CPT/HCPCS: 31500; 51702; 70450; 71045 ×2; 72125; 80053 ×2; 80306; 81000; 82550; 82805; 83605; 83735 ×2; 84100; 84478; 85025 ×2; 87081; 93005; 93041; 99291; G0480 ×5; 36415; 80320; 80329; G0378